=== PATIENT | female | born 2000 | race Caucasian/White ===

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

== ENCOUNTER 2022-05-23 00:07 | Observation (INO) | payer BC ==
[2022-05-23 01:21] LABS: #Basophils 0.1 thou/uL (0.0-0.2); #Eosinphils 0.1 thou/uL (0.0-0.7); #Lymphocytes 2.6 thou/uL (1.20-3.40); #Monocytes 0.9 thou/uL (0.11-0.59); #Neutrophils 10.7 thou/uL (1.40-6.50); %Basophils 0.5 % (0.0-1.0); %Eosinophils 0.8 % (0.0-10.0); %Lymphocytes 17.8 % (21.0-51.0); %Monocytes 6.4 % (0.0-10.0); %Neutrophils 74.5 % (42.0-75.0); Mean Corpuscular HGB CONC 34.2 g/dL (32.0-36.0); Mean Corpuscular Hemoglobin 32.8 pg (27.0-31.0); Mean Corpuscular Volume 95.9 fl (78.0-98.0); Mean Platelet Volume 9.1 fL (7.4-10.4); Platelet Count 331 10x3/uL (130-400); RBC Distribution Width 11.6 % (11.5-14.5); Red Blood Cell (RBC) Count 4.26 mill/uL (4.20-5.40); White Blood Cell (WBC) Count 14.4 10x3/uL (4.8-10.8)
[2022-05-23 01:44] LABS: ALT (SGPT) 84 U/L (8-55); AST (SGOT) 38 U/L (5-34); Albumin 4.4 g/dL (3.5-5.0); Alkaline Phosphatase 103 U/L (40-110); Anion Gap 14 mmol/L (10-20); BUN (Urea Nitrogen) 13 mg/dL (7.0-18.7); Bilirubin, Total 0.3 mg/dL (0.2-1.2); Calc. Creatinine Clearance 0 mL/min (70-130); Carbon Dioxide 24 mmol/L (22-29); Chloride 101 mmol/L (98-107); Estimated GFR 125; Globulin 3.3 g/dL (2.4-3.5); Glucose 124 mg/dL (70-105); Potassium 4.1 mmol/L (3.5-5.1); Protein, Total 7.7 g/dL (6.0-8.3); Sodium 135 mmol/L (136-145)
[2022-05-23 01:53] LABS: BHCG - Serum Negative (NEGATIVE); Pregs Control Background? CLEAR/WHITE (CLR/WHITE); Pregs Control Bar Appear? YES (CONTROL BAR)
[2022-05-23 02:22] LABS: Bacteria/HPF 1+ HPF (None Seen); Bilirubin Negative (Negative); Blood, Urine Negative (Negative); Clarity Turbid (Clear); Glucose, Urine (Dipstick) Normal (Negative); Ketone, Urine 60 mg/dL (Negative); Leukocyte Negative Leu/uL (Negative); Nitrite Negative (Negative); Protein, Urine (Dipstick) 50 mg/dL (Neg-Trace); Specific Gravity, Urine 1.044 (1.002-1.036); Squamous Epithelial 21-50 HPF (0-3); Urobilinogen Normal mg/dL (Less than 2)
[2022-05-23] MEDS ORDERED: Morphine 4 MG/ML VIAL ONE ×2 (02:52→04:50)
[2022-05-23] MEDS ORDERED: Ondansetron PF 4 MG/2 ML Vial ONE ×2 (02:52→14:32)
[2022-05-23] MEDS ORDERED: Ondansetron ODT 4 MG TAB SL PRN (04:30)
[2022-05-23] MEDS ORDERED: Piperacillin/Tazobactam 3.375 GM in Sodium Chloride 0.9% 100 ML IVPB SCH ×2 (04:30→10:00)
[2022-05-23] MEDS ORDERED: Ondansetron PF 4 MG/2 ML Vial IVP PRN (04:30)
[2022-05-23] MEDS ORDERED: Piperacillin/Tazobactam 3.375 GM VIAL ONE (04:50)
[2022-05-23 05:36] LABS: SARS-CoV-2 NAA Rapid Test Not Detected (NotDetected)
[2022-05-23] MEDS: Sodium Chloride 0.9% 1,000 ML IV SCH ×2 (05:46→16:24)
[2022-05-23 05:48] VITALS: BMI 24.4
[2022-05-23] MEDS: Morphine 4 MG/ML VIAL SLOW IVP PRN ×2 (06:29→09:50)
[2022-05-23 09:17] LABS: INR-International Normal Ratio 1.1; PTT 28.8 sec (22.9-36.1); Prothrombin Time 14.1 sec (12.0-14.7)
[2022-05-23] MEDS ORDERED: Famotidine/PF 20 mg/2ml Vial ONE (14:25)
[2022-05-23] MEDS ORDERED: SUGAMMADEX SODIUM 200 MG/2 ML VIAL ONE ×2 (14:25→15:35)
[2022-05-23] MEDS ORDERED: Meperidine HCl/PF 25 MG/ML VIAL ONE (14:25)
[2022-05-23] MEDS ORDERED: fentaNYL PF 100 MCG/2 ML SYRINGE ONE (14:25)
[2022-05-23] MEDS ORDERED: Bupivacaine/Epinephrine 0.25% 30 ML VIAL ONE (14:26)
[2022-05-23] MEDS ORDERED: Succinylcholine 200 MG/10 ml SYRINGE FS ONE (14:52)
[2022-05-23] MEDS ORDERED: Rocuronium Bromide 10 MG/ML (10ML VIAL) ONE (14:52)
[2022-05-23] MEDS ORDERED: PROPOFOL 200 MG/20 ML VIAL ONE (14:52)
[2022-05-23] MEDS ORDERED: Phenylephrine 10 MG/ML VIAL ONE (14:52)
[2022-05-23] MEDS ORDERED: Dexamethasone 20 MG/5 ML VIAL ONE (14:52)
[2022-05-23] MEDS ORDERED: Metoclopramide HCl 10 MG/2 ML VIAL ONE (14:52)
[2022-05-23] MEDS ORDERED: traMADol HCl 50 MG TAB PO PRN (15:27)
[2022-05-23] MEDS ORDERED: Labetalol HCl 100 MG/20 ML VIAL ONE (15:59)
[2022-05-23] MEDS ORDERED: Ketorolac Tromethamine 30 MG/ML VIAL ONE (16:11)
[2022-05-23] MEDS ORDERED: Acetaminophen 500 MG TAB PO SCH (18:00)
[2022-05-23 20:10] VITALS: BP 103/69; TEMP 98
[2022-05-24] MEDS ORDERED: FLUoxetine HCl 10 MG CAP PO SCH (09:00)
== END 2022-05-23 20:14 | disposition home or self-care (01) ==
LOC: ERS 00:07 → SURG A 04:13
PROVIDERS: ADMIT Surgery; ATTEND Surgery
PROC: 0DTJ4ZZ Resection of Appendix, Percutaneous Endoscopic Approach (ICD-10-PCS; principal; 2022-05-23)
DX: K35.30 Acute appendicitis with localized peritonitis, without perforation or gangrene (principal); K66.0 Peritoneal adhesions (postprocedural) (postinfection); Z79.899 Other long term (current) drug therapy; Z20.822 Contact with and (suspected) exposure to COVID-19
CPT/HCPCS: 36415; 74177; 80053; 81003; 81015; 83690; 84703; 85025; 85610; 85730; 86850; 86900; 86901; 88304; 96374; 96375; 96376; G0378; J1100; J1885; J2175; J2270; J2370; J2405; J2543; J2704; J2765; J3490; J7050; S0028; U0002

== ENCOUNTER 2022-05-29 15:29 | Observation (INO) | payer BC ==
[2022-05-29] MEDS ORDERED: Dextrose 5% in Water 1,000 ML IV PRN (17:02)
[2022-05-29] MEDS ORDERED: Promethazine HCl 25 MG/ML VIAL IM PRN (17:02)
[2022-05-29] MEDS ORDERED: traMADol HCl 50 MG TAB PO PRN (17:02)
[2022-05-29] MEDS ORDERED: hydrALAZINE 20 MG/ML VIAL SLOW IVP PRN (17:02)
[2022-05-29] MEDS ORDERED: Ondansetron PF 4 MG/2 ML Vial IVP PRN ×2 (17:02→17:15)
[2022-05-29] MEDS ORDERED: Dextrose 50% Abboject 50 ML SYRINGE SLOW IVP PRN (17:02)
[2022-05-29 17:04] VITALS: BMI 24.0
[2022-05-29] MEDS ORDERED: Acetaminophen 325 MG TAB PO PRN (17:15)
[2022-05-29] MEDS ORDERED: Ondansetron ODT 4 MG TAB SL PRN (17:15)
[2022-05-29] MEDS: Sodium Chloride 0.9% 1,000 ML IV SCH ×2 (17:16→23:55)
[2022-05-29] MEDS: Morphine 4 MG/ML VIAL SLOW IVP PRN ×2 (17:23→22:34)
[2022-05-29] MEDS: D5 1/2 NS w/20 mEq KCL 1,000 ML IV SCH (17:24)
[2022-05-29] MEDS: Famotidine 20 MG TAB PO SCH (20:31)
[2022-05-29] MEDS: Famotidine/PF 20 mg/2ml Vial SLOW IVP SCH (22:43)
[2022-05-30] MEDS: Acetaminophen 325 MG TAB PO PRN ×3 (01:27→20:39)
[2022-05-30] MEDS: D5 1/2 NS w/20 mEq KCL 1,000 ML IV SCH ×3 (01:29→16:15)
[2022-05-30 04:49] LABS: #Eosinphils 0.2 thou/uL (0.0-0.7); #Lymphocytes 1.4 thou/uL (1.20-3.40); #Monocytes 0.8 thou/uL (0.11-0.59); #Neutrophils 9.3 thou/uL (1.40-6.50); %Basophils 0.3 % (0.0-1.0); %Eosinophils 1.4 % (0.0-10.0); %Lymphocytes 11.7 % (21.0-51.0); %Neutrophils 79.7 % (42.0-75.0); Hemoglobin 11.3 g/dL (12.0-16.0); Mean Corpuscular HGB CONC 32.4 g/dL (32.0-36.0); Mean Corpuscular Hemoglobin 31.4 pg (27.0-31.0); Mean Platelet Volume 8.7 fL (7.4-10.4); Platelet Count 227 10x3/uL (130-400); RBC Distribution Width 11.7 % (11.5-14.5); White Blood Cell (WBC) Count 11.7 10x3/uL (4.8-10.8)
[2022-05-30 05:06] LABS: Anion Gap 9 mmol/L (10-20); BUN (Urea Nitrogen) Less than 4 mg/dL (7.0-18.7); Calc. Creatinine Clearance 127 mL/min (70-130); Carbon Dioxide 24 mmol/L (22-29); Chloride 106 mmol/L (98-107); Estimated GFR 125; Glucose 114 mg/dL (70-105); Potassium 3.5 mmol/L (3.5-5.1); Sodium 135 mmol/L (136-145)
[2022-05-30] MEDS: Famotidine 20 MG TAB PO SCH ×2 (08:09→21:00)
[2022-05-30] MEDS: Famotidine/PF 20 mg/2ml Vial SLOW IVP SCH ×2 (08:10→20:37)
[2022-05-30] MEDS ORDERED: FLUoxetine HCl 10 MG CAP PO SCH (13:00)
[2022-05-30 19:25] LABS: Campy jejuni + coli by PCR Negative (Negative); STEC Shiga Toxin 1+2 Negative (Negative); Salmonella spp. by PCR Negative (Negative); Shigella spp + EIEC by PCR Negative (Negative)
[2022-05-31] MEDS: D5 1/2 NS w/20 mEq KCL 1,000 ML IV SCH (00:20)
[2022-05-31] MEDS: Famotidine 20 MG TAB PO SCH (10:04)
[2022-05-31 13:12] VITALS: BP 114/73; TEMP 97
== END 2022-05-31 13:15 | disposition home or self-care (01) ==
LOC: INTOOBSV 15:29 → SURG A 15:29
PROVIDERS: ADMIT Surgery; ATTEND Surgery
DX: K52.9 Noninfective gastroenteritis and colitis, unspecified (principal); Z79.899 Other long term (current) drug therapy; Z90.49 Acquired absence of other specified parts of digestive tract
CPT/HCPCS: 36415; 80048; 85025; 87505; 96374; 96375; G0378; J2270; J2405; J3480; S0028